=== PATIENT | female | born 1960 | race African-American/Black ===

== ENCOUNTER 2017-10-29 10:29 | Inpatient (IN) | payer MEDICAID ==
[~2017-10-29] VITALS: Ht 162.6 cm; Wt 112.2 kg
[2017-10-29 11:14] LABS: Basophils # (auto) 0 uL; Basophils % (auto) 0.7 % (0.0-2.0); Eosinophils # (auto) 0.1 uL; Eosinophils % (auto) 1.5 % (0.0-7.0); Hematocrit 45.2 % (36.0-46.0); Hemoglobin 15.4 g/dL (12.2-16.2); Lymphocytes # (auto) 3.4 uL; Lymphocytes % (auto) 51.7 % (10.0-50.0); Mean Corpuscular Hemoglobin 33.9 pg (28.0-32.0); Mean Corpuscular Hgb Conc. 34.2 g/dL (32.0-36.0); Mean Corpuscular Volume 99.1 fL (80.0-100.0); Monocytes # (auto) 0.3 uL; Neutrophils # (auto) 2.7 uL; Neutrophils % (auto) 41.1 % (37.0-80.0); Platelet Count (auto) 280 10^3/uL (140-450); Red Blood Cells 4.56 10^6/uL (4.0-5.20); Red Cell Distribution Width 14.2 % (11.8-14.3); White Blood Cell 6.6 10^3/uL (4.4-10.8)
[2017-10-29 11:28] LABS: Alanine Aminotransferase 13 U/L (13-56); Albumin 3.4 g/dL (3.4-5.0); Alkaline Phosphatase 69 U/L (45-117); Anion Gap 6 (5-15); Aspartate Aminotransferase 13 U/L (15-37); BUN/Creatinine Ratio 12.8; Bilirubin, Total 0.4 mg/dL (0.2-1.0); Blood Urea Nitrogen 10 mg/dL (7-18); Carbon Dioxide 26 mmol/L (21-32); Chloride 108 mmol/L (98-107); GFR African American 99 mL/min; GFR Non-African American 81 mL/min; Glucose 93 mg/dL (74-106); Potassium 4.1 mmol/L (3.5-5.1); Sodium 140 mmol/L (136-145); Total Protein 7.8 g/dL (6.4-8.2)
[2017-10-29] MEDS ORDERED: ASPirin 81 mg TAB PO ONE (14:15)
[2017-10-29] MEDS ORDERED: MORPHINE SULF INJ 2 MG/ML SYRINGE 1ML IV PRN (16:00)
[2017-10-29] MEDS ORDERED: ZOLPIDEM TARTRATE 5 MG TAB PO PRN (16:00)
[2017-10-29] MEDS ORDERED: traMADol HCL 50 MG TAB PO PRN (16:00)
[2017-10-29] MEDS ORDERED: ONDANSETRON HCL 4 MG/2 ML VIAL IV PRN (16:00)
[2017-10-29] MEDS ORDERED: NITROGLYCERIN 0.4 MG SL TAB SL PRN ×2 (16:00)
[2017-10-29] MEDS ORDERED: MORPHINE SULFATE 4 MG/ML SYR/VIAL IV PRN (16:00)
[2017-10-29] MEDS ORDERED: DEXTROSE (50%) 50ML SYRG IV PRN (16:00)
[2017-10-29] MEDS ORDERED: ACETAMINOPHEN 325 MG TAB PO PRN (16:00)
[2017-10-29] MEDS ORDERED: LORazepam 0.5 MG TAB PO PRN (16:00)
[2017-10-29] MEDS ORDERED: ALUM & MAG HYDROX-SIMETH LIQ(MAALOX) 30 ML PO ONE (16:00)
[2017-10-29] MEDS ORDERED: cloNIDine HCL 0.1 MG TAB PO PRN (16:15)
[2017-10-29] MEDS: InsuLIN REG 1unit/0.01ml Soln (100units/ml) SC SCH ×2 (17:41→21:43)
[2017-10-29] MEDS: ACCU-CHEK COMFORT CURVE STRIP VI SCH ×2 (17:41→21:43)
[2017-10-29] MEDS: ATORVASTATIN 20 MG TAB PO SCH (21:41)
[2017-10-29] MEDS: CARVEDILOL 3.125 MG TAB PO SCH (21:41)
[2017-10-29] MEDS: SODIUM CHLOR 0.9% PF (SALINE LOCK) 10ML VIAL IV SCH (21:41)
[2017-10-29] MEDS: ENALAPRIL MALEATE 2.5 MG TAB PO SCH (21:41)
[2017-10-30] MEDS: SODIUM CHLOR 0.9% PF (SALINE LOCK) 10ML VIAL IV SCH ×3 (05:54→22:04)
[2017-10-30] MEDS: InsuLIN REG 1unit/0.01ml Soln (100units/ml) SC SCH ×4 (06:24→22:00)
[2017-10-30] MEDS: ACCU-CHEK COMFORT CURVE STRIP VI SCH ×4 (06:25→22:06)
[2017-10-30 07:05] LABS: Albumin 2.9 g/dL (3.4-5.0); BUN/Creatinine Ratio 18.7; Bilirubin, Total 0.3 mg/dL (0.2-1.0); Calcium 8.5 mg/dL (8.5-10.1); Magnesium 2.2 mg/dL (1.6-2.6); Total Protein 6.9 g/dL (6.4-8.2)
[2017-10-30 07:08] LABS: Basophils # (auto) 0 uL; Basophils % (auto) 0.4 % (0.0-2.0); Eosinophils # (auto) 0.1 uL; Eosinophils % (auto) 1.9 % (0.0-7.0); Hematocrit 40.9 % (36.0-46.0); Hemoglobin 13.9 g/dL (12.2-16.2); Lymphocytes # (auto) 2.5 uL; Mean Corpuscular Hemoglobin 33.9 pg (28.0-32.0); Mean Corpuscular Hgb Conc. 33.9 g/dL (32.0-36.0); Mean Corpuscular Volume 99.9 fL (80.0-100.0); Monocytes # (auto) 0.5 uL; Monocytes % (auto) 7.4 % (0.0-12.0); Neutrophils # (auto) 3.4 uL; Neutrophils % (auto) 52.3 % (37.0-80.0); Nucleated Red Blood Cells % 0.1 %; Platelet Count (auto) 245 10^3/uL (140-450); Red Cell Distribution Width 14.4 % (11.8-14.3); White Blood Cell 6.6 10^3/uL (4.4-10.8)
[2017-10-30 08:20] VITALS: BP 150/92
[2017-10-30 08:33] VITALS: BP 150/92
[2017-10-30] MEDS ORDERED: CLOPIDOGREL BISULFATE 75 MG TAB PO SCH (10:00)
[2017-10-30] MEDS: ASPirin 81 mg TAB PO SCH (10:02)
[2017-10-30] MEDS: DOCUSATE SOD 100 MG CAP PO SCH (10:02)
[2017-10-30] MEDS: CARVEDILOL 3.125 MG TAB PO SCH ×2 (10:03→22:05)
[2017-10-30] MEDS: ENALAPRIL MALEATE 2.5 MG TAB PO SCH ×2 (10:04→22:05)
[2017-10-30] MEDS: PANTOPRAZOLE 40 MG TAB PO SCH (10:04)
[2017-10-30] MEDS ORDERED: DICL1GEL26 TD (10:21)
[2017-10-30] MEDS ORDERED: BENZ1CAP24 PO (10:21)
[2017-10-30] MEDS ORDERED: ASPI81CH43 PO (10:21)
[2017-10-30] MEDS ORDERED: METF-370 PO (10:21)
[2017-10-30] MEDS ORDERED: [UNRECOGNIZED DRUG - CODE] PO (10:21)
[2017-10-30] MEDS ORDERED: OMEP20CA74 PO (10:21)
[2017-10-30] MEDS ORDERED: ERGO400T PO (10:21)
[2017-10-30 11:58] VITALS: BP 131/93
[2017-10-30 15:50] VITALS: BP 158/80
[2017-10-30] MEDS: ATORVASTATIN 20 MG TAB PO SCH (22:05)
[2017-10-30 22:43] VITALS: BP 148/90
[2017-10-31] MEDS: ACCU-CHEK COMFORT CURVE STRIP VI SCH ×3 (05:25→17:19)
[2017-10-31] MEDS: SODIUM CHLOR 0.9% PF (SALINE LOCK) 10ML VIAL IV SCH ×2 (05:25→15:35)
[2017-10-31] MEDS: InsuLIN REG 1unit/0.01ml Soln (100units/ml) SC SCH ×3 (05:26→17:00)
[2017-10-31 05:35] VITALS: BP 113/82
[2017-10-31 06:33] LABS: Basophils # (auto) 0 uL; Eosinophils # (auto) 0.1 uL; Lymphocytes # (auto) 3.2 uL; Monocytes # (auto) 0.5 uL; Monocytes % (auto) 7.5 % (0.0-12.0); Neutrophils % (auto) 40.1 % (37.0-80.0); Nucleated Red Blood Cells % 0.1 %; Red Cell Distribution Width 14.1 % (11.8-14.3); White Blood Cell 6.4 10^3/uL (4.4-10.8)
[2017-10-31 06:35] LABS: Basophils % (auto) 0.5 % (0.0-2.0); Eosinophils % (auto) 2.2 % (0.0-7.0); Hematocrit 41.7 % (36.0-46.0); Hemoglobin 14.1 g/dL (12.2-16.2); Lymphocytes % (auto) 49.7 % (10.0-50.0); Mean Corpuscular Hemoglobin 33.8 pg (28.0-32.0); Mean Corpuscular Hgb Conc. 33.7 g/dL (32.0-36.0); Mean Corpuscular Volume 100.1 fL (80.0-100.0); Neutrophils # (auto) 2.5 uL; Platelet Count (auto) 245 10^3/uL (140-450); Red Blood Cells 4.16 10^6/uL (4.0-5.20)
[2017-10-31 06:58] LABS: Calcium 8.2 mg/dL (8.5-10.1); Potassium 4.1 mmol/L (3.5-5.1)
[2017-10-31 07:55] VITALS: BP 141/80
[2017-10-31] MEDS ORDERED: ADENOSINE 94 MG in GIVE UN-DILUTED 0 ML IV ONE (09:15)
[2017-10-31] MEDS ORDERED: IPRATROPIUM BROM 0.5 MG/2.5ML INH SOL ONE (09:46)
[2017-10-31] MEDS ORDERED: ALBUTEROL SULF 2.5 MG/0.5ML(0.5%) NEB SOLN ONE (09:46)
[2017-10-31 10:19] VITALS: BP 135/84
[2017-10-31] MEDS: CARVEDILOL 3.125 MG TAB PO SCH (11:21)
[2017-10-31] MEDS: PANTOPRAZOLE 40 MG TAB PO SCH (11:22)
[2017-10-31] MEDS: ENALAPRIL MALEATE 2.5 MG TAB PO SCH (11:22)
[2017-10-31] MEDS ORDERED: CARV6.2551 PO (11:23)
[2017-10-31] MEDS ORDERED: ENA2.5T PO (11:23)
[2017-10-31] MEDS: ASPirin 81 mg TAB PO SCH (11:23)
[2017-10-31] MEDS: DOCUSATE SOD 100 MG CAP PO SCH (11:23)
[2017-10-31] MEDS ORDERED: ATOR20TA50 PO (11:23)
[2017-10-31 11:49] VITALS: BP 162/106
[2017-10-31 16:42] VITALS: BP 121/69
[2017-10-31 16:58] VITALS: BP 121/69
== END 2017-10-31 17:50 | disposition home or self-care (01) | DRG 194 ==
LOC: ER 10:29 → TELE 10:30 → TELE-WESTW 10-30 08:33
PROVIDERS: ADMIT Internal Medicine; ATTEND Internal Medicine
DX: I11.0 Hypertensive heart disease with heart failure (principal); I24.9 Acute ischemic heart disease, unspecified; R07.89 Other chest pain; E78.5 Hyperlipidemia, unspecified; F17.210 Nicotine dependence, cigarettes, uncomplicated; E11.9 Type 2 diabetes mellitus without complications
CPT/HCPCS: 36415; 71046; 78452; 80048; 80053; 80061; 82962; 83036; 83735; 83880; 84443; 84484; 85025; 85379; 93005; 93017; 93306; 93970; 94761; J0153

== ENCOUNTER → 2023-04-22 16:27 | Emergency (ER) | payer MEDICAID ==
[~2023-04-22 16:27] MED LIST: ASPI81CH43 PO; ATOR20TA50 PO; BENZ200C64 PO; CARV6.2551 PO; DICL1GEL26 TD; ENAL2.5T11 PO; ERGO400T PO; METF-370 PO; NABU-74 PO; OMEP20CA74 PO
== END | disposition left against medical advice (07) ==
LOC: EDUNIT# 16:04 → EDBD 16:27 → ER 16:27
DX: Z04.3 Encounter for examination and observation following other accident (principal); Z53.21 Procedure and treatment not carried out due to patient leaving prior to being seen by health care provider; W01.0XXA Fall on same level from slipping, tripping and stumbling without subsequent striking against object, initial encounter; Y93.89 Activity, other specified; Y92.89 Other specified places as the place of occurrence of the external cause; Y99.8 Other external cause status